=== PATIENT | male | born 1945 | race Caucasian/White ===

== ENCOUNTER → 2019-05-26 10:54 | Outpatient (CLI) | payer MEDICARE, OTHER, SELFPAY ==
[2019-05-11 10:47] VITALS: BMI 35.4
--- NOTE | 2019-05-26 11:02 | CT_ITS ---
STUDY: LOW DOSE CT LUNG CANCER SCREENING REASON FOR EXAM: Male, 74 years old. TOBACCO USE X 30 YEARS, 3PPD, QUIT 10 YRS AGO RADIATION DOSAGE (If Supplied By Facility): CTDIvol = ( 4.02 ) mGy, DLP = ( 124.36 ) mGycm TECHNIQUE: No contrast was administered. Low dose technique was utilized (average mAS-38 and kVp 120). 1.25 mm axial source images with a slice interval of 1.25-mm were reconstructed in lung windows. 2.5 mm axial source images with a slice interval of 2.5-mm were reconstructed in lung windows. 5.0 mm axial source images with a slice interval of 5.0-mm were reconstructed in soft tissue windows. Nodule measured using lung windows on PACS and/or independent workstation with automated measurement of minimum and maximum diameter. Nodule measurement reported as average diameter rounded to the nearest whole number. Growth is defined as an increase ins size of greater than 1.5 mm. COMPARISON: None. NODULES: Subpleural reticulation and mild bronchiectasis identified predominantly in the lower lung zones. Some bronchiectasis visible in the mid and upper lung zones. No noncalcified pulmonary nodules. Total lung nodules (excluding granulomas): None Emphysema: None significant Endobronchial lesion: None Aorta: Atherosclerosis. There is aneurysmal dilation of the ascending thoracic aorta with axial diameter measuring up to 4.4 cm. Coronary arteries: Significant atherosclerosis coronary arteries. Heart: Normal size Pulmonary artery: Unremarkable for unopacified technique. Mediastinal nodes: No soft tissue adenopathy. Reactive appearing mediastinal lymph nodes measuring up to 9 mm in short axis. Other chest and abdominal findings: There are granulomatous calcifications of the liver and spleen. Adrenal glands are not focally enlarged. CT/Low Dose CT Lung Screening IMPRESSION: 1. Lung-RADS category 1 - Continue annual screening with LDCT in 12 months. 2. Aneurysmal enlargement of the ascending thoracic aorta measuring 4.4 cm in diameter. 3. Mild bronchiectasis and lower lung zone dominant subpleural fibrosis 4. Atherosclerosis including coronary arteries 5. Mildly enlarged mediastinal lymph nodes measuring up to 9 mm in short axis without dominant aleah mass. 6. Granulomas calcifications. IMPORTANT NOTES FOR USE: ACR Lung-RADS Version 1.0 Assessment Categories Release Date: September 24, 2013 Category: Coded 0-4 bases on nodule(s) with highest degree of suspicion. Negative screen is defined as categories 1 and 2; a positive screen is defined as categories 3 and 4. Category 3 and 4A nodules that are unchanged on interval CT should be coded as category 2, and individuals returned to screening in 12 months. Category 4X: Category 3 or 4 nodules with additional imaging findings that increase the suspicion of lung cancer, such as spiculation, GGN that doubles in size in 1 year, enlarged lymph notes, etc. Category Modifiers: S (significant finding unrelated to lung cancer) and C (prior history of treated lung cancer) may be added to the 0-4 Lung-RADS Electronically Signed: Santi Adams MD ([place]) at 17:57 EST , Service support ,
== END ==
PROVIDERS: Family Provider Family Medicine; PCP Family Medicine; Referring Provider Internal Medicine Critical Care Medicine; Visit Provider Internal Medicine Critical Care Medicine
DX: Z87.891 Personal history of nicotine dependence (principal)
CPT/HCPCS: G0297